=== PATIENT | male | born 1945 | race Caucasian/White ===

== ENCOUNTER 2019-10-16 13:19 | Outpatient (RCR) | payer MEDICARE, SELFPAY ==
[2019-10-16 13:40] LABS: International Normalized Ratio 1.4; Prothrombin Time (Protime)PT. 17.2 SECONDS (11.7-14.9)
== END 2019-10-16 18:00 | disposition home or self-care (01) ==
LOC: HHLAB 13:19
DX: T82.868A Thrombosis due to vascular prosthetic devices, implants and grafts, initial encounter (principal); I25.10 Atherosclerotic heart disease of native coronary artery without angina pectoris; T81.89XD Other complications of procedures, not elsewhere classified, subsequent encounter
CPT/HCPCS: 85610